=== PATIENT | male | born 1985 | race Caucasian/White ===

== ENCOUNTER 2016-07-24 14:37 | Inpatient (IN) | payer MEDICAID ==
[2016-07-24] MEDS ORDERED: ONDANSETRON DISINTEGRATING 4 MG TAB PO ONE (14:49)
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
[2016-07-24] MEDS ORDERED: NS 1,000 ML IV ONE (15:26)
[2016-07-24] MEDS ORDERED: HYDROmorphONE/DILAUDID 1 MG/ML SYR IVP ONE (16:19)
[2016-07-24] MEDS ORDERED: HYDROmorphONE/DILAUDID 1 MG/ML SYR ONE (16:47)
[2016-07-24] MEDS ORDERED: HYDROmorphONE/DILAUDID 2 MG/ML INJ IVP ONE (16:52)
[2016-07-24] MEDS ORDERED: BUPIVACAINE 0.5% 30 ML SDV ONE (16:53)
[2016-07-24] MEDS ORDERED: ONDANSETRON 4 MG/2 ML VIAL IVP PRN (17:23)
[2016-07-24] MEDS ORDERED: morphINE PCA 30 MG/30 ML PCA IV PRN (17:23)
[2016-07-24] MEDS ORDERED: NALOXONE HCL 0.4 MG/ML INJ IVP PRN (17:23)
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
[2016-07-24] MEDS ORDERED: fentaNYL 100 MCG/2 ML INJ ONE (20:10)
[2016-07-24] MEDS ORDERED: PROPOFOL 200 MG/20 ML VIAL ONE ×2 (20:10)
[2016-07-24] MEDS ORDERED: CEFAZOLIN 1 GM/DEXTROSE/50 ML BAG IV ONE (20:19)
[2016-07-24] MEDS ORDERED: MIDAZOLAM 2 MG/2 ML VIAL ONE (20:29)
[2016-07-24] MEDS ORDERED: ROPIVACAINE HCL 150 MG/30 ML INJ ONE ×2 (20:30)
[2016-07-24] MEDS ORDERED: LIDOCAINE 2% 100 MG/5 ML SYR ONE (20:30)
[2016-07-24] MEDS ORDERED: clonIDINE 1 MG/10 ML VIAL EP ONE (20:30)
[2016-07-24] MEDS ORDERED: TEMAZEPAM 15 MG CAP PO PRN (20:39)
[2016-07-24] MEDS ORDERED: diphenhydrAMINE 25 MG CAP PO PRN (20:39)
[2016-07-24] MEDS ORDERED: DIPHENOXYLATE/ATROPINE LOMOTIL 1 TAB PO PRN (20:39)
[2016-07-24] MEDS ORDERED: DIAZEPAM 5 MG TAB PO PRN (20:39)
--- NOTE | 2016-07-24 20:39 | POSTOPPROG ---
Post Op Note Date of Operation: 07/24/16 Surgeon: Axel Lazaro Anesthesia: GET(General Endotracheal) Pre-op Diagnosis: R bimalleolar ankle fx Post-op Diagnosis: same Procedure: ORIF R bimalleolar ankle fx Inf/Abcess present in the surg proc area at time of surgery?: No EBL: Minimal
[2016-07-24] MEDS ORDERED: D5W 1/2 NS W/ 20 KCl/L 1,000 ML IV SCH (20:45)
[2016-07-24] MEDS: METOPROLOL TARTRATE 100 MG TAB PO SCH (20:55)
[2016-07-24] MEDS ORDERED: ATORVASTATIN CALCIUM 40 MG TAB PO SCH (21:00)
[2016-07-24] MEDS ORDERED: ceFAZolin 2 GM/DEXTROSE 100 ML IV SCH (22:00)
[2016-07-24] MEDS: ceFAZolin 2 GM/DEXTROSE 100 ML IV SCH (22:53)
[2016-07-25] MEDS: ACETAMINOPHEN 325 MG TAB PO SCH ×2 (00:06→05:38)
[2016-07-25] MEDS: oxyCODONE IR 5 MG TAB PO PRN ×3 (00:07→08:11)
[2016-07-25 01:07] VITALS: O2SAT 100
[2016-07-25 08:21] VITALS: BP 127/78; PULSE 73; RESP 15; TEMP 97.7
--- NOTE | 2016-07-25 08:24 | SOAPPROG ---
SOAP Progress Note Assessment/Plan: Assessment: R bimalleolar ankle fx Min. pain (block functioning) Angel diet + U/O RLE splint intact, no D/C Toes with good cap refill Plan: OOB/PT D/C if able to safely transfer 07/25/16 08:23 Objective: Vital Signs Temp Pulse Resp BP Pulse Ox 36.5 C 73 15 127/78 H 100 07/25/16 08:21 07/25/16 08:21 07/25/16 08:21 07/25/16 08:21 07/25/16 08:21 07/24/16 07/25/16 07/26/16 04:59 05:59 05:59 Intake Total Output Total 800 Balance -800 ICD10 Worksheet Patient Problems: Problems Problem Status Onset Bimalleolar fracture of right ankle Acute
[2016-07-25] MEDS ORDERED: MULTIVITAMINS 1 EACH TAB PO SCH (09:00)
[2016-07-25] MEDS ORDERED: SERTRALINE HCL 100 MG TAB PO SCH (09:00)
[2016-07-25] MEDS ORDERED: LISINOPRIL 20 MG TAB PO SCH (09:00)
[2016-07-25] MEDS: METOPROLOL TARTRATE 100 MG TAB PO SCH (09:24)
--- NOTE | 2016-07-25 21:58 | GOP ---
[f rep st] OPERATIVE REPORT DATE OF OPERATION: 07/24/2016 SURGEON: Axel Lazaro MD ANESTHESIA: General plus popliteal and saphenous nerve blocks performed by the anesthesiologist at my request for postoperative pain management. PREOPERATIVE DIAGNOSIS: Right bimalleolar ankle fracture. POSTOPERATIVE DIAGNOSIS: Right bimalleolar ankle fracture. PROCEDURE PERFORMED: 1. Open reduction, internal fixation right bimalleolar ankle fracture. 2. Intraoperative use of fluoroscopy. FINDINGS: ESTIMATED BLOOD LOSS: Minimal. INDICATIONS: The patient is a 30-year-old left above-knee amputee who on the day of surgery sustain ed a fall the into a postoperatively, resulting in a left bimalleolar ankle fracture. Based on the displaced nature of the injury, it was recommended that operative treatment consisting of open reduc tion, internal fixation be pursued. The patient acknowledged he understood the potential risks of t he operation, including but not limited to, bleeding, infection, neurovascular damage, limb loss, li mited limb function, malunion, nonunion, need for hardware removal, pain or functional limitations d espite operative treatment, and anesthetic risks. The patient gave consent for the operative proced ure. DESCRIPTION OF PROCEDURE: The patient brought into the operating room after IV antibiotics were adm inistered. He was placed in the supine position. Popliteal and saphenous nerve blocks were perform ed by the anesthesiologist at my request for postoperative pain management. A tourniquet was placed on the right thigh, a bump underneath the right hip and shoulder, and the right lower extremity was prepped and draped in standard sterile fashion. After marking the incisions and Justin wrap exsanguin ation, the tourniquet was inflated to 250. Attention was initially directed toward the fibula. A l ongitudinal incision was made along the posterior border of the lateral malleolus. Skin and subcuta neous tissue were sharply incised. Sharp dissection was carried posterior to the fibula through the fascia overlying the peroneal tendons. The posterior aspect of the fibula was exposed. A 6-hole 1 /3 tubular plate was then placed along the posterior border of the fibula. A 3.5 mm bicortical scre w was placed in a nxqyiwgvr-qo-beoplebr direction through the plate. At the screw was tightened, th e fracture was anatomically reduced with a dental pick. With the fracture held in an anatomically r educed position, a 2.7 mm cortical screw was placed in lag fashion through the plate in a posterior- to-anterior direction. A 3.5 mm bicortical screw was then placed in the most proximal hole in the p late. Fluoroscopic views confirmed favorable reduction and hardware placement. The fascia overlyin g the peroneal tendons was closed with 2-0 Vicryl suture in interrupted fashion, subcutaneous tissue was closed with 3-0 Vicryl suture in interrupted fashion, the skin was closed with 4-0 nylon interr upted sutures. Attention was directed medially. An oblique incision was made along the medial malleolus. Skin and subcutaneous tissue were sharply incised. Sharp dissection was carried down to the periosteal leve l, taking care to avoid damage to the saphenous vein. Interposed periosteum was freed from the frac ture site. Examination of the medial joint revealed no visible cartilage damage. A 2-point reducti on clamp and dental pick were used to reduce the fracture. With the fracture held in an anatomicall y reduced position, two 2.7 mm cortical screws were placed in lag fashion in a tfvstg-[id number]-xsahnwxe di rection. Fluoroscopic views confirmed optimal hardware positioning and anatomic reduction. The aundrea p medial tissue was closed with 2-0 Vicryl suture in interrupted fashion, subcutaneous tissue was cl osed with 3-0 Vicryl suture in interrupted fashion, skin was closed with 4-0 nylon interrupted verti escobar mattress sutures. The wounds were dressed with sterile Adaptic, 4 x 4, and Webril, and the leg was placed in a below-knee splint. The patient tolerated the procedure well and was taken to the re covery room, extubated, in stable condition postoperatively. All sponge, needle, and instrument cou nts were reported as being correct. DRAINS: None. COMPLICATIONS: None. PLAN: The patient will be readmitted for ambulation. /[id number]/MODL
== END 2016-07-25 12:19 | disposition home or self-care (01) | DRG 494 ==
LOC: F3N 17:11
PROVIDERS: ADMIT Orthopaedic Surgery Foot and Ankle Surgery; ATTEND Orthopaedic Surgery Foot and Ankle Surgery
PROC: 0QSJ04Z Reposition Right Fibula with Internal Fixation Device, Open Approach (ICD-10-PCS; principal; 2016-07-24 20:30)
DX: S82.841A Displaced bimalleolar fracture of right lower leg, initial encounter for closed fracture (principal); W16.512A Jumping or diving into swimming pool striking water surface causing other injury, initial encounter; Y93.11 Activity, swimming; Y92.89 Other specified places as the place of occurrence of the external cause; I10 Essential (primary) hypertension; Z89.612 Acquired absence of left leg above knee
CPT/HCPCS: 96374; 97116-GP; 97162-GP; 97165-GO; C1713; J0690; J0735; J1170; J2001; J2250; J2270; J2704; J2795; J3010